=== PATIENT | female | born 1995 | race Two or more races ===

== ENCOUNTER 2017-03-26 16:44 | Emergency (ER) | payer OTHER ==
[~2017-03-26 16:44] MED LIST: BUTA1CAP29 PO; HYDR-971 PO; MECL25TA3 PO; NAPR500T3 PO; NAPR500T8 PO; ONDA4TAB10 SL; PHEN-318 PO; SULF1TAB24 PO
[2017-03-26 18:04] VITALS: BP 129/77
[2017-03-26 18:45] LABS: BASO % 0 % (0-3); EOS % 0 % (0-3); HEMATOCRIT 34.4 % (36.0-47.0); HEMOGLOBIN 11.6 g/dL (12.0-15.5); LYMPH # 2.6 x10^3/uL (1.0-4.8); LYMPH % 18 % (24-48); MEAN CORPUSCULAR HEMOGLOBIN 31 pg (25-35); MEAN CORPUSCULAR HGB CONC 34 g/dL (31-37); MEAN CORPUSCULAR VOLUME 93 fL (79-100); MONO % 6 % (0-9); NEUT % 75 % (31-73); PLATELET COUNT 259 x10^3/uL (140-400); RED BLOOD COUNT 3.72 x10^6/uL (3.50-5.40); RED CELL DISTRIBUTION WIDTH 12.9 % (11.5-14.5); WHITE BLOOD COUNT 14.2 x10^3/uL (4.0-11.0)
[2017-03-26 18:47] LABS: BILIRUBIN,URINE NEGATIVE (NEG); GLUCOSE,URINE NEGATIVE (NEG); NITRITE,URINE NEGATIVE (NEG); PROTEIN,URINE NEGATIVE (NEG-TRACE); UROBILINOGEN,URINE 0.2 mg/dL (0.2 mg/dL)
[2017-03-26 18:53] LABS: BARBITURATES NEG (NEG); BENZODIAZEPINES NEG (NEG); CANNABINOIDS NEG (NEG); COCAINE NEG (NEG); METHADONE NEG (NEG); OPIATES NEG (NEG); PHENCYCLIDINE NEG (NEG)
[2017-03-26 18:58] LABS: BACTERIA,URINE FEW /HPF (0-FEW); RBC,URINE OCC /HPF (0-2)
[2017-03-26 18:59] LABS: SQUAMOUS EPITHELIAL CELL,UR OCC /LPF
[2017-03-26 19:04] LABS: ALBUMIN 3.2 g/dL (3.4-5.0); CREATININE 0.7 mg/dL (0.6-1.0); DIRECT BILIRUBIN 0.1 mg/dL (0.0-0.2); GFR 105.6; TOTAL BILIRUBIN 0.5 mg/dL (0.2-1.0); TOTAL PROTEIN 7.4 g/dL (6.4-8.2)
[2017-03-26 19:11] LABS: POTASSIUM 2.9 mmol/L (3.5-5.1)
[2017-03-26] MEDS ORDERED: POTASSIUM CHLORIDE 20 MEQ TABLET.ER. PO ONE (19:30)
--- NOTE | 2017-03-26 20:00 | PHYS DOC ---
Past Medical History Past Medical History: No Pertinent History Past Surgical History: No Surgical History Alcohol Use: None Drug Use: None Adult General Chief Complaint Chief Complaint: OTHER COMPLAINTS [facility] HPI Patient is a 21 year old female approx 19 wks who presents with mother and male significant other for auditory hallucinations and change in behavior developing over multiple months time. Family states this all started after a slip and fall with a head injury. At that time, she had a negative head CT. She has since progressively worsened. Family states she tells that she is hungry, but then does not hardly eat. She largely does not have any complaints other than admitting to auditory hallucinations. She denies vision changes, headache, numbness, tingling, weakness, visual hallucinations, suicidality, homicidality, abdominal pain, nausea or vomiting, fever or chills, chest pain, dyspnea, rash. Review of Systems Review of Systems Constitutional: Denies fever or chills [] Eyes: Denies change in visual acuity, redness, or eye pain [] HENT: Denies nasal congestion or sore throat [] Respiratory: Denies cough or shortness of breath [] Cardiovascular: No additional information not addressed in HPI [] GI: Denies abdominal pain, nausea, vomiting, bloody stools or diarrhea [] : Denies dysuria or hematuria [] Musculoskeletal: Denies back pain or joint pain [] Integument: Denies rash or skin lesions [] Neurologic: Denies headache, focal weakness or sensory changes [] Endocrine: Denies polyuria or polydipsia [] Current Medications Current Medications Current Medications Medications (Trade) Dose Ordered Sig/Alix Start Time Stop Time Status Last Admin Dose Admin Potassium Chloride (Klor-Con) 40 meq 1X ONCE 03/26/17 19:30 03/26/17 19:31 DC 03/26/17 19:24 40 MEQ Allergies Allergies Allergies Coded Allergies Type Severity Reaction Last Updated Verified No Known Drug Allergies 07/16/15 No Physical Exam Physical Exam Constitutional: Well developed, well nourished, no acute distress, non-toxic appearance. [] HENT: Normocephalic, atraumatic, bilateral external ears normal, oropharynx moist, no oral exudates, nose normal. [] Eyes: PERRLA, EOMI, conjunctiva normal, no discharge. [] Neck: Normal range of motion, supple. [] Cardiovascular:Heart rate regular rhythm [] Lungs & Thorax: Bilateral breath sounds clear to auscultation [] Abdomen: Bowel sounds normal, soft, no tenderness. Gravid below umbilicus [] Skin: Warm, dry, no erythema, no rash. [] Back: Normal range of motion. [] Extremities: No tenderness, ROM intact, no edema. [] Neurologic: Alert and oriented X 3, normal motor function, normal sensory function, no focal deficits noted, cranial nerves II through XII intact. [] Psychologic: Affect flat, judgement normal, mood normal. [] Current Patient Data Vital Signs Vital Signs Date Time Temp Pulse Resp B/P Pulse Ox O2 Delivery O2 Flow Rate FiO2 03/26/17 18:04 99.0 115 16 129/77 100 Room Air 99.0 Lab Values Laboratory Tests Test 03/26/17 17:25 03/26/17 18:19 03/26/17 18:22 POC Urine HCG, Qualitative Hcg positive (Negative) White Blood Count 14.2x10^3/uL (4.0-11.0) H Red Blood Count 3.72x10^6/uL (3.50-5.40) Hemoglobin 11.6g/dL (12.0-15.5) L Hematocrit 34.4% (36.0-47.0) L Mean Corpuscular Volume 93fL (79-100) Mean Corpuscular Hemoglobin 31pg (25-35) Mean Corpuscular Hemoglobin Concent 34g/dL (31-37) Red Cell Distribution Width 12.9% (11.5-14.5) Platelet Count 259x10^3/uL (140-400) Neutrophils (%) (Auto) 75% (31-73) H Lymphocytes (%) (Auto) 18% (24-48) L Monocytes (%) (Auto) 6% (0-9) Eosinophils (%) (Auto) 0% (0-3) Basophils (%) (Auto) 0% (0-3) Neutrophils # (Auto) 10.7x10^3uL (1.8-7.7) H Lymphocytes # (Auto) 2.6x10^3/uL (1.0-4.8) Monocytes # (Auto) 0.8x10^3/uL (0.0-1.1) Eosinophils # (Auto) 0.0x10^3/uL (0.0-0.7) Basophils # (Auto) 0.0x10^3/uL (0.0-0.2) Urine Color Yellow Urine Clarity Cloudy Urine pH 6.0 Urine Specific [place] 1.025 Urine Protein Negativemg/dL (NEG-TRACE) Urine Glucose (UA) Negativemg/dL (NEG) Urine Ketones (Stick) 40mg/dL (NEG) Urine Blood Negative (NEG) Urine Nitrite Negative (NEG) Urine Bilirubin Negative (NEG) Urine Urobilinogen Dipstick 0.2mg/dL (0.2 mg/dL) Urine Leukocyte Esterase Moderate (NEG) Urine RBC Occ/HPF (0-2) Urine WBC 1-4/HPF (0-4) Urine Squamous Epithelial Cells Occ/LPF Urine Bacteria Few/HPF (0-FEW) Urine Mucus Mod/LPF Sodium Level 135mmol/L (136-145) L Potassium Level 2.9mmol/L (3.5-5.1) *L Chloride Level 102mmol/L (98-107) Carbon Dioxide Level 23mmol/L (21-32) Anion Gap 10 (6-14) Blood Urea Nitrogen 12mg/dL (7-20) Creatinine 0.7mg/dL (0.6-1.0) Estimated GFR (Cockcroft-Gault) 105.6 Glucose Level 103mg/dL (70-99) H Calcium Level 9.0mg/dL (8.5-10.1) Total Bilirubin 0.5mg/dL (0.2-1.0) Direct Bilirubin 0.1mg/dL (0.0-0.2) Aspartate Amino Transferase (AST) 40U/L (15-37) H Alanine Aminotransferase (ALT) 46U/L (14-59) Alkaline Phosphatase 52U/L (46-116) Total Protein 7.4g/dL (6.4-8.2) Albumin 3.2g/dL (3.4-5.0) L Thyroid Stimulating Hormone (TSH) 2.169uIU/mL (0.358-3.74) Urine Opiates Screen Neg (NEG) Urine Methadone Screen Neg (NEG) Urine Barbiturates Neg (NEG) Urine Phencyclidine Screen Neg (NEG) Urine Amphetamine/Methamphetamine Neg (NEG) Urine Benzodiazepines Screen Neg (NEG) Urine Cocaine Screen Neg (NEG) Urine Cannabinoids Screen Neg (NEG) Urine Ethyl Alcohol Neg (NEG) Glucose (Fingerstick) 88mg/dL (70-99) Laboratory Tests 03/26/17 18:19 Laboratory Tests 03/26/17 18:19 Course & Med Decision Making Course & Med Decision Making Pertinent Labs and Imaging studies reviewed. (See chart for details) Bedside ultrasound as performed and interpreted by me showing single IUP with heart rate of 153. Had negative head CT here on 11/22/16, so this was not repeated today. Her labs are otherwise unremarkable here other than hypokalemia, which was replaced by mouth. Suspect psychiatric illness. PAT education courses sales representative has seen and evaluated the patient and recommends follow up at the [facility] tomorrow. Patient and family are comfortable with this plan. Return precautions given. She and family understand and agree with plan. Dragon Disclaimer Dragon Disclaimer This electronic medical record was generated, in whole or in part, using a voice recognition dictation system. Departure Departure Impression: Primary Impression: Auditory hallucinations Disposition: 01 HOME, SELF-CARE Condition: STABLE Patient Instructions: Hallucinations and Delusions Additional Instructions: Take vistaril as needed for agitation or anxiety. Follow-up with [facility] tomorrow. Return for any concerns. Scripts Hydroxyzine Pamoate (Vistaril)25 Mg Capsule1 Cap PO TID PRN ANXIETY / AGITATION #30 CAP Prov:Shubham TRUJILLO MD 03/26/17 Shubham TRUJILLO MD March 26, 2017 20:00
[2017-03-26] MEDS ORDERED: HYDR25CA PO (21:09)
[2017-03-26] MEDS: hydrOXYzine PAMOATE 25 MG CAPSULE PO ONE ×2 (21:46→21:55)
== END 2017-03-26 21:59 | disposition home or self-care (01) ==
LOC: ER 16:44
DX: O99.342 Other mental disorders complicating pregnancy, second trimester (principal); R44.0 Auditory hallucinations; E87.6 Hypokalemia; Z3A.19 19 weeks gestation of pregnancy
CPT/HCPCS: 36415; 80048; 80076; 80305; 80320; 81001; 81025; 82947; 84443; 85027; 87086; G0481; Q0177; 99285-25